=== PATIENT | male | born 1945 | race Caucasian/White ===

== ENCOUNTER → 2016-08-03 | Outpatient (CLI) | payer MEDICARE, OTHER | LOC: CT 13:13 → RAD 13:13 | DX: R91.1 Solitary pulmonary nodule (principal); R93.8 Abnormal findings on diagnostic imaging of other specified body structures | CPT/HCPCS: 71250 ==

== ENCOUNTER 2021-04-11 18:41 | Emergency (ER) | payer MEDICARE ==
[~2021-04-11 18:41] MED LIST: CELEBREX200 MG PO; COLACE100 MG PO
[2021-04-11 20:32] LABS: HEMOGLOBIN 15.6 gm/dl (14.0-17.5); RED BLOOD COUNT 5.42 M/UL (4.20-5.50); WHITE BLOOD COUNT 10.7 K/UL (4.5-11.0)
[2021-04-11 20:38] LABS: BUN/CREATININE RATIO 11 (0-10)
[2021-04-12] MEDS ORDERED: DECADRON4 MG PO (01:43)
[2021-04-12] MEDS ORDERED: ZITHROMAX250 MG PO (01:43)
[2021-04-12] MEDS ORDERED: ASPIRIN CHEWABL81 MG PO (01:45)
== END 2021-04-12 01:54 | disposition home or self-care (01) ==
LOC: ER1 18:41
PROVIDERS: Emergency Medicine
DX: U07.1 COVID-19 (principal); I25.10 Atherosclerotic heart disease of native coronary artery without angina pectoris; I25.2 Old myocardial infarction; E78.5 Hyperlipidemia, unspecified
CPT/HCPCS: 0240U; 36600; 71045; 80053; 82550; 82553; 82803; 83605; 83690; 83735; 83880; 84100; 84484; 85025; 85379; 85610; 85730; 87040; 93005; 99285; Q9967

== ENCOUNTER → 2021-10-29 | Outpatient (CLI) | payer MEDICARE ==
[~2021-10-29] MED LIST changes: +ASPIRIN CHEWABL81 MG PO; +DECADRON4 MG PO; +ZITHROMAX250 MG PO
== END ==
LOC: US 10:19
DX: N43.3 Hydrocele, unspecified (principal)
CPT/HCPCS: 76870